=== PATIENT | female | born 1970 | race Caucasian/White ===

== ENCOUNTER 2020-04-21 10:02 | Emergency (ER) | payer OTHER, SELFPAY ==
--- NOTE | 2020-04-21 10:13 | XR_ITS ---
EXAMINATION: XR CHEST CLINICAL INFORMATION: Cough COMPARISON: November 30, 2016 TECHNIQUE: AP portable view of the chest was obtained. FINDINGS: No significant abnormality is noted involving the heart, lungs, mediastinum, bony thorax or soft tissues. XR/XR chest 1V IMPRESSION: No acute disease.
--- NOTE | 2020-04-21 10:14 | ED_ITS ---
HPI - General Adult General Chief complaint: Upper Respiratory Symptoms Stated complaint: covid symptoms Time Seen by Provider: 04/21/20 10:09 Source: patient Mode of arrival: ambulatory Limitations: no limitations History of Present Illness HPI narrative: patient is here complaining of dry cough, chest discomfort with coughing, low-grade fevers at home, earache bilateral, sore throat, headache for the last 3 days. Patient tells me she was sent to ED for COVID testing from her job. She tells me she has a history of COVID infection in September 2019 Onset (ago): day(s) Radiation: non-radiation Severity: mild Pain Consistency: constant Exacerbating factors: none Associated symptoms: denies other symptoms Treatments prior to arrival: other (alkasetlzer cough medication ) Related Data Previous Rx's Medication Instructions Recorded lisinopril 10 1 tab PO DAILY #30 tab 03/21/20 mg-hydrochlorothiazide 12.5 mg tablet Allergies Allergy/AdvReac Type Severity Reaction Status Date / Time cat dander [CATS] Allergy Unknown ITCHING Unverified 02/28/20 19:16 dog dander [DOG] Allergy Unknown ITCHING Unverified 02/28/20 19:16 phentermine Allergy Unknown Unknown Verified 04/21/20 10:23 Apples Allergy Unknown swelling Uncoded 01/21/20 00:00 lips and mouth general anesthesia Allergy Unknown Unknown Uncoded 04/21/20 10:23 General anesthesia- during Allergy Unknown unknown Uncoded 01/21/20 00:00 c-s HAYFEVER Allergy Unknown ITCHY EYES Uncoded 02/28/20 19:16 PLASTIC Allergy Unknown ITCHING Uncoded 02/28/20 19:16 plastic utensils and chap Allergy Unknown swell lips Uncoded 01/21/20 00:00 stic Review of Systems Review of Systems: Yes all other systems are reviewed and are negative Constitutional: Constitutional: Reports no additional constitutional complaints, Denies body ache(s), Denies chills, Reports fever(s) (low grade temp), Reports headache(s) and Denies weakness Eyes: Eyes: Reports no additional eye complaints and Denies change in vision ENT: Reports system reviewed and no additional complaints, except as documented, Denies dizziness, Reports otalgia, Reports headache(s), Denies nasal congestion, Reports nasal discharge, Denies neck pain and Reports sore throat Cardiovascular: Cardiovascular: Reports no additional cardiovascular complaints, Reports chest pain (with coughig ), Denies leg edema and Denies dysp arabella Respiratory: Respiratory: Reports no additional respiratory complaints, Reports cough and Denies dyspnea Gastrointestinal: Gastrointestinal: Reports no additional gastrointestinal complaints, Denies abdominal pain, Denies diarrhea, Denies nausea and Denies vomiting Genitourinary: Genitourinary: Reports no additional female genitourinary complaints and Denies urinary incontinence Musculoskeletal: Musculoskeletal: Reports no additional musculoskeletal complaints, Denies back pain, Denies arthralgias, Denies joint swelling, Denies neck pain, Denies numbness and Denies tingling Integumentary/Breasts: Skin/Breast: Reports system reviewed and no additional complaints, except as docu and Denies rash Neurologic: Reports system reviewed and no additional complaints, except as documented, Denies Abnormal speech present, Denies dizziness, Reports headache(s), Denies numbness, Denies tingling and Denies weakness PMFSH Past Medical History Attestation statement: The following information was validated with the patient. Source: obtained from family and nursing notes reviewed Social History Social History Advance Directives: No Advance Directives Information Provided: Yes Physical Exam Vital Signs: Vital Signs: Last Vital Signs Temp 97.9 F 04/21/20 10:19 Pulse 78 04/21/20 10:19 Resp 18 04/21/20 10:19 BP 174/103 H 04/21/20 10:19 Pulse Ox 98 04/21/20 10:19 Body Mass Index 0.3 Const: General: cooperative, healthy appearing, comfortable and no acute distress Orientation/consciousness: patient oriented x3 Limitations: no limitations HENMT: Head: Yes normal to inspection Ears: hearing grossly normal bilaterally General nose exam: Normal external nose present Face and sin us: Yes normal facial exam Mouth: Normal oral and palatal mucosa present Throat: Yes posterior oropharynx normal Eyes: General: appearance normal, both eyes and all related structures Pupils: Equal, round and reactive pupils present Neck: Neck: Yes normal visual inspection Chest: Chest palpation & inspection: normal inspection of the chest Resp: Effort & Inspection: normal respiratory effort Auscultation: clear to auscultation bilaterally Cardio: Rate: regular rate Rhythm: regular rhythm Peripheral pulses: Peripheral pulses 2+ throughout GI: Inspection: Yes normal to inspection Palpation (GI): Soft to palpation and nontender Auscultation: normal bowel sounds Back/Spine/Pelvis: Thoracic/Lumbar Spine: thoracic and lumbar spine normal to inspection Skin: General skin exam: no rashes or lesions noted Neuro: General: patient oriented x3, no focal motor deficits and normal sensation to monofilament Cranial nerves: Yes Equal, round and reactive pupils present Cognition (Neuro): normal cognition Speech: No Abnormal speech present Gait exam (Neuro): Normal gait present Motor exam (neuro): 5/5 motor strength present throughout Extrem: General: Yes normal to inspection Course Course Course Narrative: Will check CXR, COVID test. asymptomatic hypertension 1150- x-ray negative. COVID testing pending. Stable vital signs. Benign exam. Reviewed worrisome signs and symptoms of when to return to the emergency department. Comfortable discharge home. Medical Decision Making Medical Records Medical records reviewed: Yes I reviewed the patient's medical records. Lab Data Lab results reviewed: Yes I reviewed the patient's lab results. Imaging Data Chest x-ray: Radiologist's impression: EXAMINATION: XR CHEST CLINICAL INFORMATION: Cough COMPARISON: November 30, 2016 TECHNIQUE: AP portable view of the chest was obtained. FINDINGS: No significant abnormality is noted involving the heart, lungs, mediastinum, bony thorax or soft tissues. XR/XR chest 1V IMPRESSION: No acute disease. Discharge Plan Discharge Clinical Impression: Viral infection Patient Disposition: Home, Self-Care Instructions: Viral Syndrome (ED) Additional Instructions: We have tested you today for COVID 19. Test results take 1-2 days and we will call you with the results negative or positive. Take tylenol or motrin if able as needed for pain or fever. Stay well hydrated with fluids like water, gatorade and/or powerade. Wash hands at home. If living with others try to self isolate if possible. If unable wear a mask around others in your home and wash hands frequently. If COVID test is positive you will need to self isolate for a total of 14 days from when your symptoms started. You may return to work sooner if testing is negative and all symptoms resolved >72 hours. You should return to the emergency department for severe shortness of breath, chest pain or fever which does not respond to both tylenol and motrin at home. Prescriptions: No Action lisinopril-hydrochlorothiazide 10-12.5 mg tablet 1 tab PO DAILY Qty: 30 RF: 4 Referrals: Ioana Chung MD [Primary Care Provider] - 2 days Stand Alone Forms: Work/School Release Interventions: ED Discharge Assessment Last Done: 04/21/20 12:08 Discharge Date/Time: 04/21/20 12:08
[2020-04-21 10:19] VITALS: BP 174/103; PULSE 78; RESP 18; TEMP 36.6; O2SAT 98
== END 2020-04-21 12:08 | disposition home or self-care (01) ==
PROVIDERS: Nurse Practitioner Family; Emergency Provider Emergency Medicine; PCP Internal Medicine
DX: B34.9 Viral infection, unspecified (principal); R05 Cough; R07.9 Chest pain, unspecified; R51.9 Headache, unspecified; Z20.828 Contact with and (suspected) exposure to other viral communicable diseases; Z79.899 Other long term (current) drug therapy
CPT/HCPCS: 71045; 99283; U0003

== ENCOUNTER 2020-05-24 10:58 | Outpatient (REF) | payer OTHER, SELFPAY ==
--- NOTE | 2020-05-24 | MM_ITS ---
EXAMINATION: MM SCREENING DIGITAL BREAST TOMOSYNTHESIS, BILATERAL CLINICAL INFORMATION: Screening. Asymptomatic. The lifetime risk of breast cancer based on the Tyrer-Cuzick Model is 10%. COMPARISON: Mammography: 09/16/2018; outside mammography 09/25/2014 ([facility]) TECHNIQUE: Digital breast tomosynthesis is performed in both the craniocaudal and mediolateral oblique views along with computer-aided detection (CAD). Synthesized 2D images are generated from the tomosynthesis. FINDINGS: There are scattered areas of fibroglandular density (ACR BI-RADS breast composition Category b). There are no significant masses, abnormal calcifications, or other abnormalities. Recommend pattern is similar to prior studies. MM/MM tomosynthesis screening BI IMPRESSION: No mammographic evidence of malignancy. ASSESSMENT: BI-RADS 1: Negative RECOMMENDATION: Routine annual mammography screening. This patient's information was entered into a reminder system with a target due date for their next mammogram.
== END 2020-05-24 10:59 | disposition home or self-care (01) ==
LOC: HO.MAMMO 10:58
PROVIDERS: PCP Internal Medicine; Visit Provider Internal Medicine
DX: Z12.31 Encounter for screening mammogram for malignant neoplasm of breast (principal)
CPT/HCPCS: 77063; 77067

== ENCOUNTER 2020-07-09 11:04 | Day surgery (SDC) | payer OTHER, SELFPAY ==
--- NOTE | 2020-07-08 09:36 | HO.ANESPROP2 ---
Documented by User: Ai Ybarra 07/08/20 13:09 HPI - Anesthesia Eval Consult details Narrative: 49yo F for Upper Endoscopy and Colonoscopy Left message for patient to call to discuss ? allergy to GA. In previous record, allergy listed as General anesthesia- during 1991: unknown - Allergy . Has since had rotator cuff repair. Per patient - They said I almost during my . Unclear if r/t anesthesia. Things were really crazy back then . Had no issue with rotator cuff surgery. [facility] Past Medical History Medical History Diabetes Glaucoma HTN (hypertension) Hypothyroid Social History Social History Smoking Status: Never smoker Use of substances other than those prescribed or required for medical reasons: No Advance Directives: No Advance Directives Information Provided: No Meds Allergies Allergy/AdvReac Type Severity Reaction Status Date / Time cat dander [CATS] Allergy Unknown ITCHING Verified 07/09/20 11:44 dog dander [DOG] Allergy Unknown ITCHING Unverified 02/28/20 19:16 Apples Allergy Unknown swelling Uncoded 01/21/20 00:00 lips and mouth General anesthesia- during Allergy Unknown unknown Uncoded 01/21/20 00:00 c-s HAYFEVER Allergy Unknown ITCHY EYES Uncoded 02/28/20 19:16 plastic utensils and chap Allergy Unknown swell lips Uncoded 01/21/20 00:00 stic Exam Exam Date and Time: July 08, [id number] Pertinent Lab Results Pertinent Lab Results: Laboratory Tests 01/15/20 03/04/20 08:43 12:31 WBC 6.0 Hgb 14.1 Hct 40.5 Plt Count 238 Sodium 141 Potassium 4.4 Chloride 102 BUN 10 Creatinine 0.95 Assessment and Plan Assessment Anesthesia Assessment: Chart Reviewed Documented by User: Lisa Whiteside 07/09/20 12:12 [facility] Past Medical History Medical History Diabetes Glaucoma HTN (hypertension) Hypothyroid Social History Social History Smoking Status: Never smoker Use of substances other than those prescribed or required for medical reasons: No Advance Directives: No Advance Directives Information Provided: No Meds Allergies Allergy/AdvReac Type Severity Reaction Status Date / Time cat dander [CATS] Allergy Unknown ITCHING Verified 07/09/20 11:44 dog dander [DOG] Allergy Unknown ITCHING Unverified 02/28/20 19:16 Apples Allergy Unknown swelling Uncoded 01/21/20 00:00 lips and mouth General anesthesia- during Allergy Unknown unknown Uncoded 01/21/20 00:00 c-s HAYFEVER Allergy Unknown ITCHY EYES Uncoded 02/28/20 19:16 plastic utensils and chap Allergy Unknown swell lips Uncoded 01/21/20 00:00 stic Exam Airway Mallampati Class: II (Small mouth) TM Dist: >3cm Neck ROM: Full Heart: RRR Lungs: CTA Assessment and Plan Assessment Anesthesia Assessment: Anesthesia Plan Discussed and Chart Reviewed Final Anesthetic Review NPO: Yes ASA Class: II Final Preanesthetic Review: Meds/Allgs Chart Reviewed, Consent Obtained/Reviewed and Anes Risks/Benef Reviewed Patient Risk: Low Procedure Risk: Intermediate Anesthetic Plan Anesthetic Plan: MAC: Disposition: Standard PACU
[2020-07-09 11:45] VITALS: BMI 32.3
--- NOTE | 2020-07-09 11:55 | MHC.SHP ---
Pre-Procedural Eval Section B Chief Complaint: Dysphagia, Screening Relevant Family History (Specify if Yes): No Relevant Social History: None Present Medications: see Short Stay Collaborative assessment Medical History: Significant History (Diabetes Glaucoma HTN (hypertension) Hypothyroid) History of Previous Operations: Relevant previous surgery/procedure and date(s) () Allergies: Allergies Allergy/AdvReac Type Severity Reaction Status Date / Time cat dander [CATS] Allergy Unknown ITCHING Verified 07/09/20 11:44 dog dander [DOG] Allergy Unknown ITCHING Unverified 02/28/20 19:16 Apples Allergy Unknown swelling Uncoded 01/21/20 00:00 lips and mouth General anesthesia- during Allergy Unknown unknown Uncoded 01/21/20 00:00 c-s HAYFEVER Allergy Unknown ITCHY EYES Uncoded 02/28/20 19:16 plastic utensils and chap Allergy Unknown swell lips Uncoded 01/21/20 00:00 stic Review of Systems Sugical H&P ROS: Negative: Constitution, Cardiovascular, Respiratory, Neurological, Psychiatric, Hem-Onc, Allergic/Immunologic, Gastrointestinal, Genitourinary, Musculoskeletal, Integumentary, Endocrine and Eyes/Ears/Nose/Throat Exam Surgical H&P Exam: Normal: HEENT, Normal: Heart, Normal: Lungs, Normal: Extremities, Normal: Abdomen, Normal: Skin and Normal: Neurological Plan Diagnosis/Plan: Unchanged I have reviewed the history and physical and performed a pertinent physical examination on my patient. No changes have occurred unless specified.
[2020-07-09 11:59] VITALS: BP 131/85; PULSE 88; RESP 18; TEMP 36.7; O2SAT 97
[2020-07-09 12:05] LABS: Glucose, Whole Blood 168 mg/dL (60-115)
[2020-07-09] MEDS: Lactated Ringers 1,000 ML 100 ML IVCONT (12:14)
--- NOTE | 2020-07-09 13:09 | PM.OP ---
Brief Operative Note Date of Service: 07/09/20 Pre-op diagnosis: dysphagia, screening colonoscopy Post-op diagnosis: same Procedure: see op note Surgeon: Erika Zamudio MD Anesthesia: MAC Estimated blood loss (mL): 5 Condition: stable Disposition: PACU
--- NOTE | 2020-07-09 13:10 | P.OP_ITS ---
Operative Note Operative Note Date of Service: 07/09/20 Narrative: Operative Information Procedure Description: EGD, Colonoscopy FLEXIBLE TRANSORAL UPPER GASTROINTESTINAL ENDOSCOPY AND COLONOSCOPY PROCEDURE NOTE UPPER ENDOSCOPY Consent: Indications for the procedure and potential complications of bleeding, perforation, reaction to medications and missed diagnosis were discussed with the patient and informed consent was obtained. Instrument: Olympus GIF H 190 J mid size upper endoscope Monitoring: Vital signs and clinical assessment, continuous EKG monitoring, Pulse oximetry, Carbon Dioxide monitoring and blood pressure monitoring were done throughout the procedure. Procedure: The patient was placed in the left lateral decubitis position and pre-procedure medications were administered and a bite block was placed. The endoscope was inserted into the mouth and advanced under direct vision to the third part of duodenum. A careful inspection was made as the upper endoscope was withdrawn including a retroflexed examination of the proximal stomach; Findings and interventions are described below. Findings: Larynx:normal Esophagus: GE junction at 35 cm, diaphragm hiatus at 35 cm, mild esophagitis at GEJ, bx taken from distal and proximal esophagus in separate jars. 20 mm balloon dilated with tear noted at 6 o' clock position. furrowing of esophagus observed Stomach: Patchy erythema with scarring. Biopsies were obtained. Grade 2 flap valve on retroflexed examination of the cardia. Reduced gastric movement noted. Duodenum: Normal bulb and descending duodenum, bx taken Intervention: Biopsies as noted above, balloon dilation COLONOSCOPY Instrument: Olympus variable stiffness pediatric scope 190L Colonoscopy Monitoring: Vital signs and clinical assessment, continuous EKG monitoring, Pulse oximetry, Carbon Dioxide monitoring and blood pressure monitoring were done throughout the procedure. Colon withdrawal time was 9 minutes. Procedure: The patient was placed in the left lateral decubitis position and pre-procedure medications were administered. After a digital rectal examination of the ano-rectum, the video colonoscope was inserted into the rectum and advanced through the colon to the cecum/TI. The colonoscope was slowly withdrawn in a retrograde panoramic fashion and the colon mucosa was carefully examined including a retroflexed view of the rectum. Findings and interventions are described below. Procedure Difficulty:easy Findings: bx taken due to variable bowel habit from TI and random colon Terminal Ileum-normal, bx taken random colon bx taken Cecum:normal Ascending Colon: normal Transverse Colon -normal Descending Colon:normal Sigmoid Colon: normal Rectum: Retroflexion with moderate internal and external hemorrhoids noted Anorectum - external hemrorhoid seen Colon preparation: [place] Bowel Preparation Scale Right colon; 2 Transverse colon: 3 Left colon; 2 (0 = Unprepared colon segment with mucosa not seen due to solid stool that cannot be cleared. 1 = Portion of mucosa of the colon segment seen, but other areas of the colon segment not well seen due to staining, residual stool and/or opaque liquid. 2 = Minor amount of residual staining, small fragments of stool and/or opaque liquid, but mucosa of colon segment seen well. 3 = Entire mucosa of colon segment seen well with no residual staining, small fragments of stool or opaque liquid) Impression and Post Procedure Diagnosis: Endoscopy Findings: esophagitis esophageal stricture gastritis Colonoscopy Findings: internal and external hemerrhoids Plan: Await Pathology results Repeat Colonoscopy in 10 years or earlier if clinically indicated High fiber diet leaflet avoid straining at stool, epsom salts and sitz bath, anusol supps or cream prn avoid nsaid for 3-5 days incl aspirin soft diet today and advance tomorrow may need PPi trial if not taking Above findings were reviewed with the patient and relevant handouts were provided if indicated.
[2020-07-09 13:15] VITALS: BP 111/69; PULSE 73; RESP 18; TEMP 36.2; O2SAT 99
[2020-07-09 13:31] VITALS: BP 109/75; PULSE 79; RESP 18; TEMP 36.2; O2SAT 98
== END 2020-07-09 14:01 | disposition home or self-care (01) ==
PROVIDERS: PCP Internal Medicine; Visit Provider Internal Medicine Gastroenterology
PROC: (CPT 45380; principal; 2020-07-09 12:20)
DX: Z12.11 Encounter for screening for malignant neoplasm of colon (principal); K64.8 Other hemorrhoids; K64.4 Residual hemorrhoidal skin tags; K20.90 Esophagitis, unspecified without bleeding; K22.2 Esophageal obstruction; K29.50 Unspecified chronic gastritis without bleeding; K44.9 Diaphragmatic hernia without obstruction or gangrene; I10 Essential (primary) hypertension; E11.9 Type 2 diabetes mellitus without complications; Z79.84 Long term (current) use of oral hypoglycemic drugs; Z79.899 Other long term (current) drug therapy; R79.89 Other specified abnormal findings of blood chemistry; Z88.4 Allergy status to anesthetic agent
CPT/HCPCS: 45380; 43249; 43239; 82947; 88305; 88342; C1726

== ENCOUNTER → 2020-07-23 10:39 | Outpatient (BNVA) | payer OTHER, SELFPAY | PROVIDERS: PCP Internal Medicine; Visit Provider Nurse Practitioner ==

== ENCOUNTER 2020-07-29 15:49 | Outpatient (REF) | payer OTHER, SELFPAY | END 2020-07-29 15:50 | disposition home or self-care (01) | LOC: HO.LAB 15:49 | PROVIDERS: PCP Internal Medicine; Visit Provider Internal Medicine | DX: Z20.822 Contact with and (suspected) exposure to COVID-19 (principal) | CPT/HCPCS: 36415; C9803; U0003; U0005 ==

== ENCOUNTER → 2020-08-19 08:50 | Outpatient (BNVA) | payer OTHER, SELFPAY | PROVIDERS: PCP Internal Medicine; Visit Provider Nurse Practitioner ==

== ENCOUNTER 2020-08-27 10:31 | Outpatient (REF) | payer OTHER, SELFPAY ==
[2020-08-27 11:19] LABS: Estimated Average Glucose 189 mg/dL; Hemoglobin A1c % 8.2 %
[2020-08-27 11:43] LABS: Alanine Aminotransferase 50 U/L (0-31); Anion Gap 12 (12-20); Aspartate Amino Transferase 40 U/L (5-31); Blood Urea Nitrogen 12 mg/dL (9-16); Calcium 9.2 mg/dL (8.4-10.2); Carbon Dioxide 30 mmol/L (22-29); Chloride 104 mmol/L (96-108); Cholesterol 125 mg/dL; Estimated Glomerular Filt Rate > 60; Glucose Fasting 120 mg/dL (60-99); HDL Cholesterol 36 mg/dL; LDL Cholesterol Calculated 74 mg/dl; Potassium 3.5 mmol/L (3.3-5.1); Sodium 142 mmol/L (135-145); Triglycerides 79 mg/dL
[2020-08-27 12:05] LABS: Free T4 (Free Thyroxine) 0.77 ng/dL (0.71-1.85); Thyroid Stimulating Hormone 6.32 uIU/mL (0.32-4.0); Vitamin D 25-OH Total 19.2 ng/mL (>30)
[2020-08-27 12:24] LABS: Vitamin B12 283 pg/mL (200-900)
== END 2020-08-27 10:32 | disposition home or self-care (01) ==
LOC: HO.HMGCLDS 10:31
PROVIDERS: Hospitalist; PCP Internal Medicine; Visit Provider Internal Medicine
DX: E11.65 Type 2 diabetes mellitus with hyperglycemia (principal); I10 Essential (primary) hypertension; E66.9 Obesity, unspecified; E03.9 Hypothyroidism, unspecified; R53.83 Other fatigue; L65.9 Nonscarring hair loss, unspecified; E55.9 Vitamin D deficiency, unspecified; Z20.822 Contact with and (suspected) exposure to COVID-19
CPT/HCPCS: 36415; 80048; 80061; 82306; 82607; 82746; 83036; 84439; 84443; 84450; 84460; 86769; U0003; U0005

== ENCOUNTER 2020-09-02 10:53 | Outpatient (REF) | payer OTHER, SELFPAY ==
--- NOTE | ~2020-09-02 | US_ITS ---
EXAMINATION: US ABDOMEN COMPLETE CLINICAL INFORMATION: Right upper quadrant pain. COMPARISON: Ultrasound abdomen complete 02/21/2020 and 11/12/2016. TECHNIQUE: Real-time imaging of the abdominal viscera. FINDINGS: PANCREAS: Normal. ABDOMINAL AORTA: The proximal, mid, and distal segments are normal in caliber. INFERIOR VENA CAVA: Visualized portions are normal. LIVER: The liver is normal in size. The liver contour is normal. Liver echotexture is increased probably representing fatty infiltration. There is a hypoechoic area adjacent to the gallbladder, characteristic location of focal fatty sparing. No other focal hepatic lesion. There is no intrahepatic biliary duct dilatation seen. GALLBLADDER: Normal. The gallbladder is physiologically distended without evidence of stones, sludge, polyps, wall thickening or pericholecystic fluid. COMMON BILE DUCT: Normal in caliber measuring 0.2 cm in diameter. RIGHT KIDNEY: Normal. No hydronephrosis. No renal calculi or focal parenchymal lesions. The kidney measures 9.4 cm in maximum dimension. LEFT KIDNEY: Normal. No hydronephrosis. No renal calculi or focal parenchymal lesions. The kidney measures 11.1 cm in maximum dimension. SPLEEN: Normal. The spleen measures 10.2 cm in maximum dimension. FREE FLUID: None. US/US abdomen complete IMPRESSION: Echogenic liver probably representing fatty infiltration. Otherwise unremarkable exam.
== END 2020-09-02 10:54 | disposition home or self-care (01) ==
LOC: HO.HMGCX 10:53
PROVIDERS: PCP Internal Medicine; Visit Provider Internal Medicine
DX: R10.11 Right upper quadrant pain (principal)
CPT/HCPCS: 76700

== ENCOUNTER 2020-11-12 16:32 | Outpatient (REF) | payer OTHER, SELFPAY ==
--- NOTE | ~2020-11-12 | XR_ITS ---
EXAMINATION: XR ELBOW, LEFT CLINICAL INFORMATION: Left elbow pain. COMPARISON: Left elbow radiographs dated 10/05/2018. TECHNIQUE: AP, lateral, and oblique views of the left elbow. FINDINGS: No acute fracture or dislocation. No joint space narrowing or marginal osteophytes. No osseous erosion. No significant joint effusion. Thin calcification redemonstrated adjacent to the olecranon, likely indicating tendinopathy and unchanged. Previously seen soft tissue swelling has resolved. XR/XR elbow LT min 3V IMPRESSION: No acute osseous abnormality. Calcification redemonstrated in the region of the olecranon, likely indicating distal triceps tendinopathy. Posterior soft tissue swelling has resolved.
== END 2020-11-12 16:33 | disposition home or self-care (01) ==
LOC: HO.XRAY 16:32
PROVIDERS: PCP Internal Medicine; Visit Provider Nurse Practitioner Family
DX: M25.522 Pain in left elbow (principal)
CPT/HCPCS: 73080

== ENCOUNTER 2021-04-18 10:16 | Outpatient (REF) | payer OTHER, SELFPAY ==
[2021-04-18 11:01] LABS: MANUAL DIFF FLAG NO
[2021-04-18 11:04] LABS: Basophils Percent Auto 0.5 % (0-2); Eosinophils Absolute Auto 0.5 X10*3/uL (0.0-0.4); Eosinophils Percent Auto 6.9 % (0-4); Hematocrit 41.8 % (37.0-47.0); Hemoglobin 14.4 g/dl (12.0-16.0); Imm Gran Abs Auto 0.02 X10*3/uL (0.00-0.03); Imm Gran Pct Auto 0.3 % (0.0-0.4); Lymphocytes Absolute Auto 1.9 X10*3/uL (1.2-4.9); Lymphocytes Percent Auto 29.7 % (20-40); Mean Corpuscular HGB Conc 34.4 g/dl (31.0-35.0); Mean Corpuscular Hemoglobin 31.6 pg (27.0-33.0); Mean Corpuscular Volume 91.9 fL (80.0-98.0); Mean Platelet Volume 10.3 fL (9.4-12.3); Monocytes Absolute Auto 0.3 X10*3/uL (0.1-1.2); Monocytes Percent Auto 4.8 % (2-11); Neutrophils Absolute Auto 3.8 x10*3/uL (2.0-8.3); Neutrophils Percent Auto 57.8 % (45-73); Platelet Count 226 X10*3/uL (160-400); Red Blood Count 4.55 X10*6/uL (4.20-5.50); Red Cell Distribution Width 12.1 % (11.0-16.0); White Blood Count 6.5 X10*3/uL (4.8-10.8)
[2021-04-18 11:32] LABS: Creatinine Urine 199.79 mg/dL; Microalbum/Creatinine Ratio Ur 8.5 ug/mg cr
[2021-04-18 11:33] LABS: Alanine Aminotransferase 188 U/L (0-31); Albumin Level 4.3 g/dL (3.5-5.0); Alkaline Phosphatase 87 U/L (39-117); Anion Gap 11 (12-20); Aspartate Amino Transferase 144 U/L (5-31); Bilirubin Total 0.5 mg/dL (0.0-1.0); Blood Urea Nitrogen 8 mg/dL (9-16); Calcium 9.3 mg/dL (8.4-10.2); Carbon Dioxide 28 mmol/L (22-29); Chloride 107 mmol/L (96-108); Cholesterol 140 mg/dL; Estimated Glomerular Filt Rate > 60; Glucose Fasting 152 mg/dL (60-99); HDL Cholesterol 39 mg/dL; LDL Cholesterol Calculated 84 mg/dl; Potassium 3.9 mmol/L (3.3-5.1); Sodium 142 mmol/L (135-145); Total Protein 6.9 g/dL (6.5-8.0); Triglycerides 85 mg/dL
[2021-04-18 11:53] LABS: Free T4 (Free Thyroxine) 0.73 ng/dL (0.71-1.85); Thyroid Stimulating Hormone 7.99 uIU/mL (0.32-4.0); Vitamin D 25-OH Total 43.2 ng/mL (>30)
[2021-04-20 09:56] LABS: Folate 16.2 ng/mL (> or = 4.0); Vitamin B12 > 2000 pg/mL (200-900)
[2021-04-20 16:57] LABS: Thyroid Peroxidase Antibodies 49 IU/mL (<9)
== END 2021-04-18 10:17 | disposition home or self-care (01) ==
LOC: HO.HMGCLDS 10:16
PROVIDERS: PCP Internal Medicine; Visit Provider Internal Medicine
DX: E03.9 Hypothyroidism, unspecified (principal); L65.9 Nonscarring hair loss, unspecified; E11.65 Type 2 diabetes mellitus with hyperglycemia; E55.9 Vitamin D deficiency, unspecified; E66.9 Obesity, unspecified
CPT/HCPCS: 36415; 80053; 80061; 82043; 82306; 82607; 82746; 84439; 84443; 85025; 86376

== ENCOUNTER 2021-07-16 08:57 | Outpatient (REF) | payer OTHER, SELFPAY ==
[2021-07-16 11:43] LABS: Estimated Average Glucose 189 mg/dL; Hemoglobin A1c % 8.2 %
[2021-07-16 11:51] LABS: Microalbum/Creatinine Ratio Ur 8.4 ug/mg cr
[2021-07-16 11:58] LABS: Alanine Aminotransferase 113 U/L (0-31); Albumin Level 4.4 g/dL (3.5-5.0); Alkaline Phosphatase 79 U/L (39-117); Anion Gap 13 (12-20); Aspartate Amino Transferase 78 U/L (5-31); Bilirubin Direct 0.2 mg/dL (0.0-0.5); Bilirubin Total 0.6 mg/dL (0.0-1.0); Blood Urea Nitrogen 12 mg/dL (9-16); Calcium 10.6 mg/dL (8.4-10.2); Carbon Dioxide 29 mmol/L (22-29); Chloride 103 mmol/L (96-108); Cholesterol 157 mg/dL; Estimated Glomerular Filt Rate > 60; Glucose Fasting 193 mg/dL (60-99); HDL Cholesterol 40 mg/dL; LDL Cholesterol Calculated 82 mg/dl; Potassium 4.2 mmol/L (3.3-5.1); Sodium 141 mmol/L (135-145); Total Protein 7.3 g/dL (6.5-8.0); Triglycerides 175 mg/dL
[2021-07-16 12:04] LABS: Hepatitis B Surface Antigen Negative (Negative); ~HepC Num1 0.14 S/CO (0.00-0.79); ~Hepatitis C Antibody Nonreactive (Nonreactive)
[2021-07-16 12:14] LABS: HBS Num1 0.43 mIU/mL (0-7.99); HBc Num1 0.06 S/CO (0.00-0.79); Hepatitis B Core Antibody Nonreactive (Nonreactive); ~Hepatitis B Surface Antibody NONREACTIVE (Nonreactive)
[2021-07-16 12:18] LABS: Free T4 (Free Thyroxine) 0.73 ng/dL (0.71-1.85); Thyroid Stimulating Hormone 6.35 uIU/mL (0.32-4.0); Vitamin D 25-OH Total 44.5 ng/mL (>30)
[2021-07-16 12:44] LABS: Folate 16.4 ng/mL (> or = 4.0); Vitamin B12 792 pg/mL (200-900)
[2021-07-17 09:01] LABS: Thyroid Peroxidase Antibodies 42 IU/mL (<9)
== END 2021-07-16 08:58 | disposition home or self-care (01) ==
LOC: HO.HMGCLDS 08:57
PROVIDERS: PCP Internal Medicine; Visit Provider Internal Medicine
DX: R74.8 Abnormal levels of other serum enzymes (principal); R79.89 Other specified abnormal findings of blood chemistry; E03.9 Hypothyroidism, unspecified; E11.65 Type 2 diabetes mellitus with hyperglycemia; E55.9 Vitamin D deficiency, unspecified; E66.9 Obesity, unspecified; I10 Essential (primary) hypertension; K75.81 Nonalcoholic steatohepatitis (NASH)
CPT/HCPCS: 36415; 80048; 80061; 80076; 82043; 82306; 82607; 82746; 83036; 84439; 84443; 86376; 86704; 86706; 86803; 87340

== ENCOUNTER 2021-07-22 14:06 | Outpatient (REF) | payer OTHER, SELFPAY ==
--- NOTE | ~2021-07-22 | US_ITS ---
EXAMINATION: REGION OF LEFT ACHILLES TENDON, ULTRASOUND CLINICAL INFORMATION: Lump on Achilles tendon left leg. Achilles tendinitis. COMPARISON: Scanning of the right distal Achilles tendon area. TECHNIQUE: Targeted ultrasound evaluation of the left posterior foot FINDINGS: No region of patient's tenderness and lump there is a heterogeneous bulging of the Achilles tendon with some mild hyperemia. This may represent a region of tendinitis. No Achilles tendon rupture is identified. No abnormal fluid collection is identified. US/US extremity nonvascular IMPRESSION: Region of patient's pain and lump corresponds to a focal heterogeneous bulging of the Achilles tendon which may be related to acute tendinitis.
== END 2021-07-22 14:07 | disposition home or self-care (01) ==
LOC: HO.HMGCX 14:06
PROVIDERS: Visit Provider Physician Assistant
DX: M76.60 Achilles tendinitis, unspecified leg (principal)
CPT/HCPCS: 76882

== ENCOUNTER 2021-07-29 07:48 | Outpatient (REF) | payer OTHER, SELFPAY ==
--- NOTE | ~2021-07-29 | XR_ITS ---
EXAMINATION: XR WRIST, LEFT CLINICAL INFORMATION: Pain COMPARISON: None TECHNIQUE: PA, lateral, and oblique views of the left wrist. FINDINGS: The bones and soft tissues are normal. No fracture. Alignment is anatomic with normal joint spaces. No erosions or abnormal soft tissue calcifications. XR/XR wrist LT min 3V IMPRESSION: Unremarkable left wrist exam
== END 2021-07-29 07:49 | disposition home or self-care (01) ==
LOC: HO.HOSX 07:48
PROVIDERS: Visit Provider Physician Assistant
DX: M25.532 Pain in left wrist (principal); M67.922 Unspecified disorder of synovium and tendon, left upper arm
CPT/HCPCS: 73110; 99202

== ENCOUNTER 2021-08-12 09:08 | Outpatient (REF) | payer OTHER, SELFPAY ==
--- NOTE | ~2021-08-12 | XR_ITS ---
EXAMINATION: XR ANKLE, LEFT CLINICAL INFORMATION: Left ankle pain COMPARISON: None TECHNIQUE: AP, lateral, and mortise views of the left ankle. FINDINGS: The bones and soft tissues are normal. No fracture. Alignment is anatomic. Joint spaces are maintained. No joint effusion. Calcaneal enthesophyte at the Achilles tendon insertion. XR/XR ankle LT min 3V IMPRESSION: Posterior calcaneal enthesophyte. Otherwise unremarkable.
== END 2021-08-12 09:09 | disposition home or self-care (01) ==
LOC: HO.HOSX 09:08
PROVIDERS: PCP Internal Medicine; Visit Provider Physician Assistant
DX: M25.572 Pain in left ankle and joints of left foot (principal); M76.62 Achilles tendinitis, left leg; E11.65 Type 2 diabetes mellitus with hyperglycemia; I10 Essential (primary) hypertension; E55.9 Vitamin D deficiency, unspecified; J30.81 Allergic rhinitis due to animal (cat) (dog) hair and dander; J30.1 Allergic rhinitis due to pollen; Z91.018 Allergy to other foods; T49.3X5A Adverse effect of emollients, demulcents and protectants, initial encounter; T49.8X5A Adverse effect of other topical agents, initial encounter
CPT/HCPCS: 73610; 99212

== ENCOUNTER 2021-08-31 07:30 | Outpatient (RCR) | payer OTHER, SELFPAY ==
--- NOTE | 2021-08-11 10:51 | MHC.OT.OEV ---
[address] [phone] F: [phone] Occupational Therapy Evaluation Diagnosis: TENDINOPATHY OF LEFT ELBOW Date of Onset: 07/14/21 Attending Provider: Ailyn Junior Prescribed Treatment: EVAL AND TREAT History of Current Condition: REPORTS ONSET OF L ELBOW PAIN ABOUT ONE MONTH AGO, THEN ONSET OF L WRIST PAIN AND NUMBNESS/TINGLING. STATES SHE HAD LEFT LATERAL ELBOW EDEMA, HAS SINCE IMPROVED. XRAYS UNREMARKABLE. SCHEDULED FOR EMG ON 09/24/21. 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 SOME ASSISTANCE WITH FILING PAPERS, REACHING O/H. DIFFICULTIES WITH LIFTING >5 POUNDS IN LEFT HAND. MODERATE DIFFICULTIES WITH CLEANING, COOKING. USING DOMINANT R HAND FOR MOST TASKS. Sleep: WEARING NEWLY ISSUED WRIST SPLINT AT NIGHT. HAS IMPROVED WITHIN THE LAST WEEK. AWAITING ELBOW SPLINT PRESCRIBED BY JASON. Driving: MILD DIFFICULTIES WITH HOLDING STEERING WHEEL. ALT USE OF L AND R. Pain Assessment Pain Score: 1-10/10 Pain Scale Used: Numeric (0 - 10) Pain Location and Description: 1/10 L ELBOW AT REST; 1/10 L WRIST (ULNAR SIDE) 10/10 WITH ACTIVITY; 5-6/10 L WRIST WITH ACTIVITY ACHY, THROBBING Aggravating Factors: LIFTING, CARRYING, GENERAL USE Alleviating Factors: LIDOCANE PATCHES, DICLOFENAC Skin and Soft Tissue Assessment Skin and Soft Tissue: Swelling Comments: L DORSAL FOREARM EDEMA, MILD ATROPHY OF THENAR EMINENCE Nerve assessment Ulnar Nerve: Left Impaired Median Nerve: Left Impaired Radial Nerve: Comments: (+) TINELS AT MEDIAL ELBOW, (+) TINELS AT VOLAR WRIST Sensory Assessment Temperature: Light Touch: WNL Proprioception: Vibration: Comments: REPORTS NUMBNESS/ TINGLING THROUGH D1-D5 OF L HAND SEMMES FERNANDO INTACT TO ALL DIGITS Edema Assessment Upper Extremity: Left Impaired Lower Extremity: Comments: L DORSAL EDEMA AT WRIST/ WRIST EXTENSORS NOTED CIRCUMFERENCE OF WRIST AT U.S. LEFT 15.8 CM, RIGHT 15.4 CM CIRCUMFERENCE 18 CM PROXIMAL TO U.S. LEFT 25.8 CM, RIGHT 26.1 CM Dexterity Assessment Dexterity: WFL Comments: FUNCTIONAL DEXTERITY TEST: L 25 SECONDS, R 21 SECONDS Special Tests Comments: (+) TINELS AT L MEDIAL ELBOW AND VOLAR WRIST (+) COZENS TEST L (-) PHALENES (-) MARIELLE AROM(PROM) Strength Elbow Flexion: L 140, R 150 Extension: L 5, R 0 Pronation: Supination: Comments: Flexion: Extension: Pronation: Supination: Comments: Wrist Flexion: L 65, R 70 Extension: L 65, R 70 Ulnar Deviation: L 35, R 40 Radial Deviation: L 5, R 15 Comments: Flexion: Extension: Ulnar Deviation: Radial Deviation: Comments: Digits Index MCP: PIP: DIP: Long MCP: PIP: DIP: Ring MCP: PIP: DIP: Small MCP: PIP: DIP: Comments: Gross Grasp: L 25, R 40 Lateral Pinch: L 5, R 11 Two-Point Pinch: L 5, R 9 Three-Jaw Raymond: L 4, R 10 Comments: 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 Patient demonstrates Patient verbalizes Barriers to Learning: None Readiness for Learning: Accepting Who was educated? Patient Comments: Plan of Care Assessment: MS POMPA IS A RIGHT HANDED FEMALE WITH UNCONTROLLED DM TYPE II, SHE REPORTS A ONE MONTH HISTORY OF LEFT ELBOW AND WRIST PAIN. ADDITIONALLY, SHE STATES SHE HAS NUMBNESS AND TINGLING IN HER LEFT HAND THROUGH ALL DIGITS. SHES STATES HER SYMPTOMS IN HER HAND HAVE IMPROVED SINCE WEARING A WRIST SPLINT AT NIGHT. ONGOING SKILLED OT IS WARRANTED TO ADDRESS THE AREAS MENTIONED ABOVE AND IMPROVE QOL. 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 >35 POUNDS REPORT MILD NUMBNESS/TINGLING SYMPTOMS IN L HAND AT NIGHT AND DURING THE DAY REPORT <5/10 PAIN WITH ADLs AND LIGHT IADLs Frequency and Duration: The patient will be seen 2X/WEEK FOR 4 WEEKS Treatment Plan: Therapeutic Exercise Therapeutic Activity Home Exercise Program Splinting Neuro Re-ed Patient Education Desensitization/Sensory Re-ed Edema Control ADL Training Ultrasound NMES Paraffin Fluidotherapy MHP Cold Packs Joint Mobilization Soft Tissue Mobilization Kinesiotaping Other (see comments) Electronically Signed By: LENNY BLACK/Shayna Reviewed/agree with student documentation: N/A Therapist: Please sign and return to therapist, Thank you for your referral.
--- NOTE | 2021-09-16 12:46 | MHC.OT.DC ---
[address] [phone] F: [phone] Occupational Therapy Discharge Note Provider: Ailyn Junior Diagnosis: TENDINOPATHY OF LEFT ELBOW Date of Evaluation: 08/11/21 Date of Discharge: 09/16/21 Treatments to Date: 5 Cancellations to Date: 4 No Shows to Date: 2 Discharge Status: Improved Function Independent with HEP Visit Non-compliance Discharge Summary: MS POMPA WAS MAKING IMPROVEMENT DURING THE COURSE OF HER OT VISITS. SHE REPORTED OVERALL IMPROVEMENTS IN NUMBNESS, TINGLING AND PAIN THORUGH HER LUE. A WRIST WIDGET WAS FABRICATED FOR DRUJ INSTABILITY AND WAS BEING WORN DURING THE DAY. AT NIGHT, SHE WAS WEARING A PREFAB WRIST SPLINT ON HER WRIST AND A FOLDED PILLOW AT HER ELBOW TO DECREASE NUMBNESS AND TINGLING. UNFORTUNATELY, Pt IS BEING DISCHARGED DUE TO VISIT NON COMPLIANCE WITH THE CORE POLICY. Electronically Signed By: LAMONT SANTORO OTR/Shayna Reviewed/agree with student documentation: N/A Therapist: Please Sign and return to therapist, thank you for your referral.
== END 2021-09-16 12:45 | disposition home or self-care (01) ==
LOC: HO.OT 07:30
PROVIDERS: PCP Internal Medicine; Visit Provider Physician Assistant
DX: M67.922 Unspecified disorder of synovium and tendon, left upper arm (principal)
CPT/HCPCS: 97035; 97110; 97112; 97140; 97166; 97760

== ENCOUNTER 2021-09-18 18:44 | Outpatient (REF) | payer OTHER, SELFPAY ==
--- NOTE | ~2021-09-18 | MR_ITS ---
EXAMINATION: MRI ANKLE WITHOUT CONTRAST, LEFT CLINICAL INFORMATION: Increased swelling, pain. COMPARISON: None TECHNIQUE: MRI of the ankle without contrast is performed in a 1.5 Kary high-field scanner. FINDINGS: ACHILLES TENDON: There is slight thickening of the mid to distal Achilles tendon involving a segment approximately 3.8 cm craniocaudal,, with mild heterogeneous signal. Findings suggest mild tendinosis. There is mild peritendinitis. No focal tear is seen. BONE/JOINTS: No evidence of fracture. Ankle mortise is maintained. No suspicious marrow signal changes. MUSCLES/TENDONS: Mild posterior tibial peritendinitis/tenosynovitis. Medial flexor, peroneal, extensor tendons intact. LIGAMENTS: Mild sprain ATFL. Posterior talofibular, tibiofibular, calcaneofibular ligaments intact. Sprain deltoid ligament. PLANTAR FASCIA: Intact. SINUS TARSI: Normal signal. TARSAL TUNNEL : No mass lesion SUBCUTANEOUS SOFT TISSUES: Mild lateral subcutaneous edema. MR/MR ankle LT wo con IMPRESSION: 1. Findings suggest mild tendinosis of the mid to distal Achilles tendon. No focal tear. Mild peritendinitis. 2. Mild posterior tibial peritendinitis/tenosynovitis. 3. Mild sprain ATFL. Sprain deltoid ligament.
== END 2021-09-18 18:45 | disposition home or self-care (01) ==
LOC: HO.MRI 18:44
PROVIDERS: Visit Provider Physician Assistant
DX: M76.60 Achilles tendinitis, unspecified leg (principal)
CPT/HCPCS: 73721

== ENCOUNTER → 2021-09-23 09:27 | Outpatient (BNVA) | payer OTHER, SELFPAY | PROVIDERS: Visit Provider Physician Assistant | DX: M76.60 Achilles tendinitis, unspecified leg (principal) ==

== ENCOUNTER 2021-09-24 08:57 | Outpatient (REF) | payer OTHER, SELFPAY ==
--- NOTE | 2021-09-24 09:01 | EMG_ITS ---
Left median and ulnar motor and sensory studies were performed. Left radial sensory and median and lateral antecubital sensory studies were performed. Paraspinal muscles were tested with a needle. IMPRESSION: Mild left median neuropathy across carpal tunnel. MD CLARK Chowdary/MILENA / [phone]
== END 2021-09-24 08:58 | disposition home or self-care (01) ==
LOC: HO.NEURO 08:57
PROVIDERS: Visit Provider Physician Assistant
DX: R20.0 Anesthesia of skin (principal); R20.2 Paresthesia of skin
CPT/HCPCS: 95886; 95910

== ENCOUNTER → 2021-10-21 08:47 | Outpatient (BNVA) | payer OTHER, SELFPAY | PROVIDERS: Visit Provider Orthopaedic Surgery | DX: G56.02 Carpal tunnel syndrome, left upper limb (principal) ==

== ENCOUNTER 2022-01-11 17:09 | Outpatient (REF) | payer OTHER, SELFPAY ==
--- NOTE | ~2022-01-11 | XR_ITS ---
EXAMINATION: XR CHEST CLINICAL INFORMATION: Pain in left upper arm. COMPARISON: Chest x-ray 04/21/2020 TECHNIQUE: 2 views of the chest were obtained. FINDINGS: No significant abnormality is noted involving the heart, lungs, mediastinum, bony thorax or soft tissues. XR/XR chest 2V IMPRESSION: Unremarkable examination.
== END 2022-01-11 17:10 | disposition home or self-care (01) ==
LOC: HO.HMGCX 17:09
PROVIDERS: PCP Internal Medicine; Visit Provider Physician Assistant
DX: M79.622 Pain in left upper arm (principal)
CPT/HCPCS: 71046

== ENCOUNTER 2022-09-17 11:11 | Outpatient (REF) | payer OTHER, SELFPAY ==
[2022-09-17 14:23] LABS: Estimated Average Glucose 229 mg/dL; Hemoglobin A1c % 9.6 %
[2022-09-17 14:24] LABS: Alanine Aminotransferase 55 U/L (0-31); Albumin Level 4.5 g/dL (3.5-5.0); Alkaline Phosphatase 83 U/L (39-117); Anion Gap 15 (12-20); Aspartate Amino Transferase 35 U/L (5-31); Bilirubin Total 0.8 mg/dL (0.0-1.0); Blood Urea Nitrogen 13 mg/dL (9-16); Carbon Dioxide 27 mmol/L (22-29); Chloride 103 mmol/L (96-108); Cholesterol 132 mg/dL; Estimated Glomerular Filt Rate > 60; Glucose Fasting 240 mg/dL (60-99); HDL Cholesterol 37 mg/dL; LDL Cholesterol Calculated 73 mg/dl; Sodium 141 mmol/L (135-145); Total Protein 7.1 g/dL (6.5-8.0); Triglycerides 111 mg/dL
[2022-09-17 14:41] LABS: Free T4 (Free Thyroxine) 0.99 ng/dL (0.71-1.85); Thyroid Stimulating Hormone 3.68 uIU/mL (0.32-4.0)
[2022-09-20 13:43] LABS: Thyroid Peroxidase Antibodies 36 IU/mL (<9)
[2022-09-20 21:49] LABS: Calcium (PTHI) 10.4 mg/dL (8.6-10.4); PTHI 39 pg/mL (16-77)
== END 2022-09-17 11:12 | disposition home or self-care (01) ==
LOC: HO.HMGCLDS 11:11
PROVIDERS: PCP Internal Medicine; Visit Provider Internal Medicine
DX: E11.65 Type 2 diabetes mellitus with hyperglycemia (principal); E83.52 Hypercalcemia; K75.81 Nonalcoholic steatohepatitis (NASH); E03.9 Hypothyroidism, unspecified
CPT/HCPCS: 36415; 80053; 80061; 82330; 83036; 83970; 84439; 84443; 86376

== ENCOUNTER 2023-01-13 13:54 | Outpatient (AMB) | payer OTHER, SELFPAY ==
--- NOTE | 2023-01-13 14:03 | MHC.PC.OV ---
Vital Signs 01/13/23 14:35 Height 5 ft 2 in Weight 158 lb 2 oz BMI 28.9 BP 130/86 Blood Pressure Location Lt brachial Position Sitting Pulse 88 Pulse Source Pulse Oximeter Pulse Oximetry (%) 98 Oxygen Delivery Method Room Air Intake Visit Reasons: [facility] ER focal seizure Intake Note: Pt is here today to f/u [facility] ER for focal seizure, Pt states he had a spider bite tuesday and having bums on her hand. Allergies apple Allergy (Unknown, Verified 01/14/23 00:58) swelling mouth and lips cat dander [CATS] Allergy (Unknown, Verified 01/14/23 00:58) ITCHING dog dander [DOG] Allergy (Unknown, Verified 01/14/23 00:58) ITCHING HAYFEVER Allergy (Unknown, Uncoded 01/14/23 00:58) ITCHY EYES plastic utensils and chap stic Allergy (Unknown, Uncoded 01/14/23 00:58) swell lips Medication List - Last Reconciled 01/14/23 by Ioana Chung MD cephalexin 500 mg PO Q12H 7 days flash glucose sensor (FreeStyle Edin 2 Sensor kit) As directed levothyroxine 50 mcg PO DAILY lisinopril-hydrochlorothiazide 10-12.5 mg 1 tab PO DAILY metformin 500 mg PO BID tirzepatide (Mounjaro) 2.5 mg (0.5 mL) subcut QWEEK 4 weeks Tobacco use date assessed: 01/13/23 Dental Screening Dental Screen Date: 01/13/23 Did you have a dental visit in the last 12 months?: Yes Did you have a dental problem in the last 6 months where you did not have access to dental care?: No Was dental information given to patient?: No HPI [facility] ER focal seizure HPI Details 52-year-old lady here today for follow-up after recent ER visit at [facility] where she presented with acute onset of shaking which woke her up that night, patient reported that it it initially started in her right hand which lasted for about 10 minute which bread her right arm and then down right leg. These episodes lasted for approximately an hour and a half. The ER, she has not had any further episodes of shaking, she denies any fever, no chills, no chest pain, no shortness of breath, no headache, no vision changes, weakness, numbness or tingling.. She has diabetes mellitus currently on Mounjaro, tolerating medication well, and takes it in addition to metformin 500 mg twice a day. EKG done at the ER showed normal sinus rhythm with no acute ST-T changes her QT prolongation. Her labs did not show any presence of infection or anemia , random blood sugar was 1 50 mg/dL, electrolytes, BUN creatinine,, but serum calcium was elevated at 10.6 within normal at magnesium.. Elevated albumin and elevated liver enzymes, as well as TSH. Patient states that she has not been taking her levothyroxine regular basis over the last several weeks. Concern was that she might have a possible focal seizure of new onset, and CT angio of head and neck showed no proximal occlusion or high-grade stenosis in the major arteries of the head and neck, and a CT of the head did not show any acute intracranial pathology. She was evaluated by Neurology during her stay at the ER and recommended a CT angio of head and neck as well as a CT of the head without contrast to rule out any mass lesion, which came back both unremarkable. Day already booked her at the ER to get an EEG on 03/04/2023 and an MRI of the head 02/04/2023, and follow-up with [facility] neurology. She has not had any further episodes of shaking since her discharge. Has been feeling well with no complaints at present time. She also complains of an insect bite on the tip of her index finger, which has now spread to the other fingers causing pain and stiffness. Has been applying ice, to affected area and now has started applying ER cortisone cream to affected area for the itching. [facility] Medical History (Updated 01/14/23 @ 01:16 by Ioana Chung MD) Acquired hypothyroidism COVID-19 vaccine dose declined Diabetes mellitus with hyperglycemia, without long-term current use of insulin Elevated LFTs Elevated TSH Focal seizure Glaucoma HTN (hypertension) IBS (irritable bowel syndrome) Nonscarring hair loss Obesity Pain in left forearm Refused influenza vaccine Refused pneumococcal vaccination Right upper quadrant abdominal pain Serum calcium elevated Tendinopathy of left elbow Vitamin D deficiency Surgical History History of section History of esophagogastroduodenoscopy (EGD) History of rotator cuff surgery Hx of colonoscopy Ocular rosacea Family History Father Diabetes mellitus Alcohol use Substance use disorder Mother Diabetes mellitus Brother Eosinophilic esophagitis Maternal Grandmother Alzheimer's dementia Maternal Grandfather Lung cancer Bone cancer Paternal Grandmother Alzheimer's dementia Paternal Grandfather CVD (cardiovascular disease) Brother No problems noted. Sister No problems noted. Son No problems noted. Daughter No problems noted. Social History Household Members: Significant Other and Children Housing: House Alcohol intake: current Alcohol intake frequency: holidays/special occasions only Patient Tobacco Use Status: Never used Tobacco e-Cigarette/Vaping Use: Never Used Current occupational status: employed Current occupation: [employer] Cognitive needs: No Hearing needs: No Vision needs: No Questionnaire Thrive Questionnaire Date Thrive assessed: 09/29/22 AUDIT C Alcohol Use Questionnaire (AUDIT-C) 1. How often do you have a drink containing alcohol?: Monthly or less 2. How many drinks containing alcohol do you have on a typical day when you are drinking?: 1 or 2 3. How often do you have six or more drinks on one occasion?: Never Total Score: 1 Score Reviewed/Action Taken: Yes MYRON-7 AMB Questionnaire MYRON-7 Date MYRON - 7 assessed: 09/29/22 Source: Developed by Drs. Vladislav Solorio, Toña Edmonds, Jonathan Mccauley and colleagues, with an educational marleen from [employer]. Review of Systems Const Denies fever(s), Denies headache(s) and Denies weakness Eyes Reports blurry vision ENT Reports dry mouth, Denies headache(s), Denies nasal congestion, Denies nasal discharge and Denies sore throat Card Denies chest pain, Denies lightheadedness and Denies dyspnea Resp Denies chest congestion, Denies cough, Denies dyspnea and Denies wheezing GI Denies abdominal pain and Denies change in bowel habits Denies dysuria and Reports urinary urgency Musc Reports no additional complaints Skin/Breast Reports as per HPI and Denies lesions Neuro Denies behavioral changes, Denies headache(s) and Denies weakness Psych Denies behavioral changes, Denies change in appetite, Denies depression and Denies difficulty concentrating Endo Reports polydipsia and Reports polyuria Demond/Lymph Denies easy bruising Aller/Immun Denies wheezing Physical exam (Primary Care) Vital Signs: Last Vital Signs Pulse 88 01/13/23 14:35 BP 130/86 01/13/23 14:35 Pulse Ox 98 01/13/23 14:35 Oxygen Delivery Method Room Air 01/13/23 14:35 BMI result Body Mass Index 28.9 Tobacco/Smoking Status: Tobacco use Status Tobacco use date assessed 01/13/23 01/13/23 14:06 Patient Tobacco Use Status Never used Tobacco 01/13/23 14:06 e-Cigarette/Vaping Use Never Used 01/13/23 14:06 Thrive Assessment: Date of Thrive Assessment Date Thrive assessed 09/29/22 01/13/23 14:06 Const General: cooperative, comfortable and no acute distress Orientation/consciousness: patient oriented x3 HENMT Ears: hearing grossly normal bilaterally and external ears normal General nose exam: Normal external nose present Face and sinus: Yes sinuses nontender and Yes face symmetric Mouth: Normal oral and palatal mucosa present and moist mucous membranes Neck Neck: Yes full ROM, Yes no lymphadenopathy and Yes supple Resp Effort & Inspection: normal respiratory effort and able to speak in complete sentences Auscultation: clear to auscultation bilaterally Cardio Rate: regular rate Rhythm: regular rhythm Heart sounds: S1 normal heart sound present and S2 normal heart sound present GI Palpation (GI): Soft to palpation and nontender Auscultation: normal bowel sounds Back/Spine/Pelvis Back: No back tenderness Skin Other: Slight periungual swelling and erythema noted to the fingers of both hands mainly on the index fingers. Neuro General: patient oriented x3, gait normal, moves all extremities, Normal light touch and pain sensation, no focal motor deficits and CN's II-XI intact bilaterally Extrem General: Yes normal to inspection, Yes full ROM, Yes no joint enlargement, Yes no clubbing, cyanosis or edema and Yes normal gait Psych Appearance: grossly normal Mental Status: mental status grossly normal Speech and movement: Normal speech and movement present Affect: normal affect Assessment and Plan Assessment & Plan (1) Focal seizure: Code(s): R56.9 - Unspecified convulsions Plan: . Patient was is prescribed Keppra 1000 mg twice a day afterwards discharge from the ER, but has not yet filled it, advised to fill it right away, she has an appointment for an EGD 03/04/2023 and an MRI of the head 02/04/2023 to be done at [facility], she was also advised to schedule a follow-up with her neurologist at [facility] (2) HTN (hypertension): Code(s): I10 - Essential (primary) hypertension Plan: Blood pressure at goal of less than 130/80. Continue with current medication. Reinforced importance of following a low sodium diet, getting regular exercise, and lowering stress levels. (3) Acquired hypothyroidism: Code(s): E03.9 - Hypothyroidism, unspecified Plan: Continue with current dose of levothyroxine 50 mcg daily, TSH and free T4 ordered (4) Obesity: Code(s): E66.9 - Obesity, unspecified Plan: Discussed need to increase activity and wt reduction. Recommended focusing on improving your health instead of dieting. : Eat Mediterranean diet, limit foods high in fat, sugar, and calories, eat slowly, pay attention to portion sizes, plan your meals ahead of time, start regular physical activity 150 minutes of moderate intensity exercise or 90 minutes/week of vigorous exercise and increase water intake. (5) Diabetes mellitus with hyperglycemia, without long-term current use of insulin: Code(s): E11.65 - Type 2 diabetes mellitus with hyperglycemia Qualifiers: Diabetes mellitus type: type 2 Qualified Code(s): E11.65 - Type 2 diabetes mellitus with hyperglycemia Plan: Continue taking metformin 500 mg 1 tablet twice a day, and continue Mounjaro 0.5 mg injected subcutaneously once a week, continue to check fasting blood sugar at home, maintain log and bring to next appointment for review. Reinforced diabetic diet and regular exercise with patient. Counseled regarding importance of yearly diabetes retinopathy screening. Patient advised to inspect feet daily, for any signs of injury, callus or infection. Compliance with diet and regular exercise again stressed. Blood pressure goal is less than 130/80, goal LDL is less than 100 and goal hemoglobin A1c is less than 7% \ (6) ROTHMAN (nonalcoholic steatohepatitis): Code(s): K75.81 - Nonalcoholic steatohepatitis (ROTHMAN) Plan: Recommend weight loss with diet and exercise (7) Serum calcium elevated: Code(s): E83.52 - Hypercalcemia Plan: Ordered ionized serum calcium and intact PTH (8) Swelling of digit of hand: Code(s): M79.89 - Other specified soft tissue disorders Plan: Prescription sent for cephalexin 500 mg to take 1 every 12 hours for 7 days. Orders: Orders Calcium, Ionized 01/13/23 E03.9 - Hypothyroidism, unspecified, E11.65 - Type 2 diabetes mellitus with hyperglycemia, E66.9 - Obesity, unspecified, E83.52 - Hypercalcemia, I10 - Essential (primary) hypertension, K75.81 - Nonalcoholic steatohepatitis (ROTHMAN) Hemoglobin A1c 01/13/23 E03.9 - Hypothyroidism, unspecified, E11.65 - Type 2 diabetes mellitus with hyperglycemia, E66.9 - Obesity, unspecified, E83.52 - Hypercalcemia, I10 - Essential (primary) hypertension, K75.81 - Nonalcoholic steatohepatitis (ROTHMAN) Parathyroid Hormone Related Pr 01/13/23 E03.9 - Hypothyroidism, unspecified, E11.65 - Type 2 diabetes mellitus with hyperglycemia, E66.9 - Obesity, unspecified, E83.52 - Hypercalcemia, I10 - Essential (primary) hypertension, K75.81 - Nonalcoholic steatohepatitis (ROTHMAN) Basic Metabolic Panel Fasting 01/13/23 E03.9 - Hypothyroidism, unspecified, E11.65 - Type 2 diabetes mellitus with hyperglycemia, E66.9 - Obesity, unspecified, E83.52 - Hypercalcemia, I10 - Essential (primary) hypertension, K75.81 - Nonalcoholic steatohepatitis (ROTHMAN) Lipid Panel 01/13/23 E03.9 - Hypothyroidism, unspecified, E11.65 - Type 2 diabetes mellitus with hyperglycemia, E66.9 - Obesity, unspecified, E83.52 - Hypercalcemia, I10 - Essential (primary) hypertension, K75.81 - Nonalcoholic steatohepatitis (ROTHMAN) Liver Panel 01/13/23 E03.9 - Hypothyroidism, unspecified, E11.65 - Type 2 diabetes mellitus with hyperglycemia, E66.9 - Obesity, unspecified, E83.52 - Hypercalcemia, I10 - Essential (primary) hypertension, K75.81 - Nonalcoholic steatohepatitis (ROTHMAN) Microalbumin, Random (w Creat) 01/13/23 E03.9 - Hypothyroidism, unspecified, E11.65 - Type 2 diabetes mellitus with hyperglycemia, E66.9 - Obesity, unspecified, E83.52 - Hypercalcemia, I10 - Essential (primary) hypertension, K75.81 - Nonalcoholic steatohepatitis (ROTHMAN) Free T4 (Free Thyroxine) 01/13/23 E03.9 - Hypothyroidism, unspecified Thyroid Stimulating Hormone 01/13/23 E03.9 - Hypothyroidism, unspecified Medications: New cephalexin 500 mg PO Q12H 7 days 14 caps 0RF Coding Level of Care Code Est Pt Level 4 (65261) Diagnoses Focal seizure R56.9 HTN (hypertension) I10 Acquired hypothyroidism E03.9 Obesity E66.9 Diabetes mellitus with hyperglycemia, without long-term current use of insulin E11.65 Diabetes mellitus type: type 2 ROTHMAN (nonalcoholic steatohepatitis) K75.81 Serum calcium elevated E83.52 Swelling of digit of hand M79.89
[2023-01-13 14:35] VITALS: BP 130/86; PULSE 88; O2SAT 98; BMI 28.9
== END 2023-01-13 15:07 | disposition home or self-care (01) ==
PROVIDERS: PCP Internal Medicine; Visit Provider Internal Medicine
DX: R56.9 Unspecified convulsions (principal); I10 Essential (primary) hypertension; E03.9 Hypothyroidism, unspecified; E66.9 Obesity, unspecified; E11.65 Type 2 diabetes mellitus with hyperglycemia; K75.81 Nonalcoholic steatohepatitis (NASH); E83.52 Hypercalcemia; M79.89 Other specified soft tissue disorders; Z68.28 Body mass index [BMI] 28.0-28.9, adult
CPT/HCPCS: 99214

== ENCOUNTER 2023-02-09 16:01 | Outpatient (AMB) | payer OTHER, SELFPAY ==
[2023-02-09 16:36] VITALS: BP 132/78; PULSE 82; TEMP 36.6; O2SAT 98; BMI 28.9
--- NOTE | 2023-02-09 16:36 | AM.OFFWIN_ITS ---
Intake Vital Signs 02/09/23 16:36 Height 5 ft 2 in Weight 158 lb BMI 28.9 BP 132/78 Blood Pressure Location Rt brachial Position Sitting Pulse 82 Pulse Source Pulse Oximeter Temp 97.8 F Temp Source Temporal Artery Scan Pulse Oximetry (%) 98 Oxygen Delivery Method Room Air Intake Visit Reasons: EP, Yeast infection?([phone]) Intake Note: pt is here for c/o cut on inner thigh Patient Tobacco Use Status: Never used Tobacco Allergies apple Allergy (Unknown, Verified 02/09/23 16:37) swelling mouth and lips cat dander [CATS] Allergy (Unknown, Verified 02/09/23 16:37) ITCHING dog dander [DOG] Allergy (Unknown, Verified 02/09/23 16:37) ITCHING Cephalexin Allergy (Intermediate, Uncoded 01/19/23 14:23) Rash HAYFEVER Allergy (Unknown, Uncoded 01/19/23 14:23) ITCHY EYES plastic utensils and chap stic Allergy (Unknown, Uncoded 01/19/23 14:23) swell lips HPI EP, Yeast infection?([phone]) HPI Details 52-year-old female presents to the office for a sick visit. Patient is having a lot of irritation in the left groin area. She feels very uncomfortable. [facility] Medical History (Updated 02/10/23 @ 06:55 by Chad Clayton MD) Acquired hypothyroidism COVID-19 vaccine dose declined Diabetes mellitus with hyperglycemia, without long-term current use of insulin Elevated LFTs Elevated TSH Focal seizure Glaucoma HTN (hypertension) IBS (irritable bowel syndrome) Nonscarring hair loss Obesity Pain in left forearm Refused influenza vaccine Refused pneumococcal vaccination Right upper quadrant abdominal pain Serum calcium elevated Tendinopathy of left elbow Vitamin D deficiency Surgical History History of section History of esophagogastroduodenoscopy (EGD) History of rotator cuff surgery Hx of colonoscopy Ocular rosacea Family History Father Diabetes mellitus Alcohol use Substance use disorder Mother Diabetes mellitus Brother Eosinophilic esophagitis Maternal Grandmother Alzheimer's dementia Maternal Grandfather Lung cancer Bone cancer Paternal Grandmother Alzheimer's dementia Paternal Grandfather CVD (cardiovascular disease) Brother No problems noted. Sister No problems noted. Son No problems noted. Daughter No problems noted. 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 Left groin: Inguinal fold: Superficial tear of skin. Area is very moist. No erythema. Assessment & Plan Assessment & Plan (1) Rash: Code(s): R21 - Rash and other nonspecific skin eruption Plan: Irritant area has macerated skin causing the discomfort. Hydrocortisone cream has been prescribed. Patient was advised to use boxer shorts for underwear. If symptoms not better to follow-up here. Medications: New hydrocortisone 2.5% 1 appl topical BID PRN 20 grams 0RF skin irritation Coding Level of Care Code Est Pt Level 3 (77519) Diagnoses Rash R21
== END 2023-02-09 17:01 | disposition home or self-care (01) ==
PROVIDERS: PCP Internal Medicine; Visit Provider Internal Medicine
DX: R21 Rash and other nonspecific skin eruption (principal)
CPT/HCPCS: 99213

== ENCOUNTER 2023-04-09 09:00 | Outpatient (REF) | payer OTHER, SELFPAY ==
[2023-04-09 11:41] LABS: Alanine Aminotransferase 60 U/L (0-31); Albumin Level 4.3 g/dL (3.5-5.0); Alkaline Phosphatase 85 U/L (39-117); Anion Gap 13 (12-20); Aspartate Amino Transferase 45 U/L (5-31); Bilirubin Direct 0.1 mg/dL (0.0-0.5); Bilirubin Total 0.3 mg/dL (0.0-1.0); Blood Urea Nitrogen 9 mg/dL (9-16); Calcium 10.2 mg/dL (8.4-10.2); Carbon Dioxide 27 mmol/L (22-29); Chloride 107 mmol/L (96-108); Cholesterol 127 mg/dL (<200); Estimated Average Glucose 151 mg/dL; Estimated Glomerular Filt Rate > 60; Glucose Fasting 186 mg/dL (60-99); HDL Cholesterol 34 mg/dL (>40); Hemoglobin A1c % 6.9 % (<6.0); LDL Cholesterol Calculated 57 mg/dL (<100); Potassium 4.3 mmol/L (3.3-5.1); Sodium 143 mmol/L (135-145); Total Protein 7.1 g/dL (6.5-8.0); Triglycerides 181 mg/dL (<150)
[2023-04-09 11:47] LABS: Creatinine Urine 273.62 mg/dL; Microalbum/Creatinine Ratio Ur 4.3 ug/mg cr (<30)
[2023-04-09 12:01] LABS: Thyroid Stimulating Hormone 2.83 uIU/mL (0.32-4.0)
[2023-04-13 01:59] LABS: Calcium, Ionized 5.1 mg/dL (4.7-5.5)
== END 2023-04-09 09:01 | disposition home or self-care (01) ==
LOC: HO.HMGCLDS 09:00
PROVIDERS: PCP Internal Medicine; Visit Provider Internal Medicine
DX: E03.9 Hypothyroidism, unspecified (principal); E66.9 Obesity, unspecified; E11.65 Type 2 diabetes mellitus with hyperglycemia; K75.81 Nonalcoholic steatohepatitis (NASH); E83.52 Hypercalcemia; I10 Essential (primary) hypertension
CPT/HCPCS: 36415; 80048; 80061; 80076; 82043; 82330; 82570; 83036; 84439; 84443

== ENCOUNTER 2023-06-23 08:13 | Outpatient (REF) | payer OTHER, SELFPAY ==
[2023-06-23 12:03] LABS: Estimated Average Glucose 154 mg/dL
[2023-06-23 12:31] LABS: Alanine Aminotransferase 51 U/L (0-31); Albumin Level 4.3 g/dL (3.5-5.0); Alkaline Phosphatase 60 U/L (39-117); Anion Gap 12 (12-20); Aspartate Amino Transferase 43 U/L (5-31); Bilirubin Total 0.5 mg/dL (0.0-1.0); Blood Urea Nitrogen 10 mg/dL (9-16); Calcium 9.8 mg/dL (8.4-10.2); Carbon Dioxide 30 mmol/L (22-29); Chloride 104 mmol/L (96-108); Cholesterol 153 mg/dL (<200); Estimated Glomerular Filt Rate > 60; Glucose Fasting 162 mg/dL (60-99); HDL Cholesterol 42 mg/dL (>40); LDL Cholesterol Calculated 83 mg/dL (<100); Potassium 3.7 mmol/L (3.3-5.1); Sodium 142 mmol/L (135-145); Total Protein 7.2 g/dL (6.5-8.0); Triglycerides 142 mg/dL (<150)
[2023-06-23 12:35] LABS: Free T4 (Free Thyroxine) 0.85 ng/dL (0.71-1.85); Thyroid Stimulating Hormone 3.94 uIU/mL (0.32-4.0); Vitamin D 25-OH Total 22.7 ng/mL (>30)
[2023-06-23 12:51] LABS: Creatinine Urine 138.05 mg/dL; Microalbum/Creatinine Ratio Ur 4.3 ug/mg cr (<30)
== END 2023-06-23 08:14 | disposition home or self-care (01) ==
LOC: HO.HMGCLDS 08:13
PROVIDERS: PCP Internal Medicine; Visit Provider Internal Medicine
DX: I10 Essential (primary) hypertension (principal); E66.9 Obesity, unspecified; E11.65 Type 2 diabetes mellitus with hyperglycemia; K75.81 Nonalcoholic steatohepatitis (NASH); E55.9 Vitamin D deficiency, unspecified; E03.9 Hypothyroidism, unspecified
CPT/HCPCS: 36415; 80053; 80061; 82043; 82306; 82570; 83036; 84439; 84443

== ENCOUNTER 2023-06-24 12:44 | Outpatient (AMB) | payer OTHER, SELFPAY ==
--- NOTE | 2023-06-24 13:09 | A.OFFPC_ITS ---
Vital Signs 06/24/23 13:10 Height 5 ft 2 in Weight 155 lb 8 oz BMI 28.4 BP 120/86 Blood Pressure Location Rt brachial Position Sitting Pulse 69 Pulse Source Pulse Oximeter Pulse Oximetry (%) 99 Oxygen Delivery Method Room Air Intake Visit Reasons: Diabetes followup Intake Note: Pt is here to follow up for her lab results Allergies apple Allergy (Unknown, Verified 06/24/23 13:50) swelling mouth and lips cat dander [CATS] Allergy (Unknown, Verified 06/24/23 13:50) ITCHING dog dander [DOG] Allergy (Unknown, Verified 06/24/23 13:50) ITCHING Cephalexin Allergy (Intermediate, Uncoded 06/24/23 13:50) Rash HAYFEVER Allergy (Unknown, Uncoded 06/24/23 13:50) ITCHY EYES Medication List - Last Reconciled 06/24/23 by Ioana Chung MD flash glucose sensor (FreeStyle Edin 2 Sensor kit) As directed hydrocortisone 2.5% 1 appl topical BID PRN levothyroxine 50 mcg PO DAILY lisinopril-hydrochlorothiazide 10-12.5 mg 1 tab PO DAILY metformin 500 mg PO BID Ozempic (semaglutide) 0.25 mg (0.368 mL) subcut QWEEK 1 month NS Tobacco use date assessed: 06/24/23 Dental Screening Dental Screen Date: 06/24/23 Did you have a dental visit in the last 12 months?: No Did you have a dental problem in the last 6 months where you did not have access to dental care?: No Was dental information given to patient?: Patient has dentist HPI Diabetes followup HPI Details 52-year-old lady with hypertension, hypo thyroidism, and diabetes mellitus, previously on metformin but unable to tolerate it due to gi upset , and was on Mounjaro but states that her insurance has stopped covering the latter medication and has been having diarrhea from it . Her latest hemoglobin A1c is at 7% and fasting lipids are within normal limits except for low HDL cholesterol normal thyroid levels, but has vitamin-D deficiency as seen on recent labs done. Urine microalbumin showed normal results. She is overdue for her diabetes retinopathy screening. [facility] Medical History (Updated 06/28/23 @ 15:14 by Ioana Chung MD) Elevated LFTs Focal seizure Tendinopathy of left elbow Refused pneumococcal vaccination Refused influenza vaccine COVID-19 vaccine dose declined IBS (irritable bowel syndrome) Vitamin D deficiency Nonscarring hair loss Acquired hypothyroidism Obesity Diabetes mellitus with hyperglycemia, without long-term current use of insulin Glaucoma HTN (hypertension) Surgical History History of esophagogastroduodenoscopy (EGD) Hx of colonoscopy Ocular rosacea History of section History of rotator cuff surgery Family History Father Diabetes mellitus Alcohol use Substance use disorder Mother Diabetes mellitus Brother Eosinophilic esophagitis Maternal Grandmother Alzheimer's dementia Maternal Grandfather Lung cancer Bone cancer Paternal Grandmother Alzheimer's dementia Paternal Grandfather CVD (cardiovascular disease) Brother No problems noted. Sister No problems noted. Son No problems noted. Daughter No problems noted. 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 1. Little interest or pleasure in doing things: not at all 2. Feeling down, depressed, or hopeless: not at all 3. Trouble falling or staying asleep, or sleeping too much: more than half the days 4. Feeling tired or having little energy: more than half the days 5. Poor appetite or overeating: not at all 6. Feeling bad about yourself - or that you are a failure or have let yourself or your family down: not at all 7. Trouble concentrating on things, such as reading the newspaper or watching television: not at all 8. Moving or speaking so slowly that other people could have noticed. Or the opposite - being so fidgety or restless that you have been moving around a lot more than usual: not at all 9. Thoughts that you would be better off or of hurting yourself in some way: not at all Total score: 4 Depression Screening Interpretation: Negative Depression Screening Done: Yes 52239 - PHQ-9 Billing: Yes Source: Developed by Drs. Vladislav Solorio, Toña Edmonds, Jonathan Mccauley and colleagues, with an educational marleen from [employer]. Thrive Questionnaire Date Thrive assessed: 06/24/23 I am a: Patient What is your living situation today?: I have a steady place to live Within the past 12 months, did the food you bought not last and you didn't have the money to get more?: Never true Within the past 12 months, did you worry whether your food would run out before you got money to buy more?: Never true Do you have trouble paying for medicines?: Yes Do you have trouble getting transportation to medical appointments?: No Do you have trouble paying your heating and electricity bill?: No Do you have trouble taking care of your child, family member or friend?: No Do you have trouble with day-to-day activities such as bathing, preparing meals, shopping, managing finances, etc.?: No Are you currently unemployed and looking for a job?: No Are you interested in more education?: No AUDIT C Alcohol Use Questionnaire (AUDIT-C) 1. How often do you have a drink containing alcohol?: 2-4 times a month 2. How many drinks containing alcohol do you have on a typical day when you are drinking?: 3 or 4 3. How often do you have six or more drinks on one occasion?: Never Total Score: 3 MYRON-7 AMB Questionnaire MYRON-7 Date MYRON - 7 assessed: 10/13/22 Feeling nervous, anxious, or on edge: 0 = Not at all Not being able to stop or control worryin = Not at all Worrying too much about different things: 0 = Not at all Trouble relaxin = Not at all Being so restless that it is hard to sit still: 0 = Not at all Becoming easily annoyed or irritable: 0 = Not at all Feeling afraid as if something awful might happen: 0 = Not at all Total MYRON-7 score (0-4 normal; 5-9 mild; 10-14 moderate; 15-21 severe): 0 Source: Developed by Toña Carranza Grey, Jonathan Mccauley and colleagues, with an educational marleen from [employer]. MYRON-7 Assessment Billing MYRON-7 Assessment Tool: MYRON-7 Assessment 56132 Review of Systems Const Denies fever(s), Denies headache(s) and Denies weakness Eyes Reports blurry vision ENT Denies headache(s), Denies nasal congestion, Denies nasal discharge and Denies sore throat Card Denies chest pain, Denies lightheadedness and Denies dyspnea Resp Denies chest congestion, Denies cough, Denies dyspnea and Denies wheezing GI Denies abdominal pain and Denies change in bowel habits Denies dysuria and Reports urinary urgency Musc Reports no additional complaints Neuro Denies headache(s) and Denies weakness Psych Reports no additional complaints Endo Reports no additional complaints Demond/Lymph Denies easy bruising Aller/Immun Denies wheezing Physical exam (Primary Care) Vital Signs: Last Vital Signs Pulse 69 06/24/23 13:10 BP 120/86 06/24/23 13:10 Pulse Ox 99 06/24/23 13:10 Oxygen Delivery Method Room Air 06/24/23 13:10 BMI result Body Mass Index 28.4 BMI Assessment/Plan discussion: High BMI High, discussed plan: lifestyle, weight reduction, dietary, physical activity and other (Will start MOunjaro , switching from Ozempic) Tobacco/Smoking Status: Tobacco use Status Tobacco use date assessed 06/24/23 06/24/23 13:15 Patient Tobacco Use Status Never used Tobacco 06/24/23 13:15 e-Cigarette/Vaping Use Never Used 06/24/23 13:15 PHQ-9: PHQ-9 Score PHQ-9: Total score 4 06/28/23 14:40 Depression Screening Interpretation: Negative Thrive Assessment: Date of Thrive Assessment Date Thrive assessed 06/24/23 06/24/23 13:37 Const General: comfortable, no acute distress and alert Nutritional Appearance: overweight Orientation/consciousness: patient oriented x3 HENMT Ears: hearing grossly normal bilaterally and external ears normal General nose exam: Normal external nose present Face and sinus: Yes sinuses nontender and Yes face symmetric Mouth: Normal oral and palatal mucosa present and moist mucous membranes Neck Neck: Yes full ROM, Yes no lymphadenopathy and Yes supple Resp Effort & Inspection: normal respiratory effort and able to speak in complete sentences Auscultation: clear to auscultation bilaterally Cardio Rate: regular rate Rhythm: regular rhythm Heart sounds: S1 normal heart sound present and S2 normal heart sound present GI Palpation (GI): Soft to palpation and nontender Auscultation: normal bowel sounds Back/Spine/Pelvis Back: No back tenderness Neuro General: patient oriented x3, gait normal, moves all extremities, Normal light touch and pain sensation, no focal motor deficits and CN's II-XI intact bilaterally Extrem General: Yes normal to inspection, Yes full ROM, Yes no joint enlargement, Yes no clubbing, cyanosis or edema and Yes normal gait Psych Appearance: grossly normal Mental Status: mental status grossly normal Speech and movement: Normal speech and movement present Affect: normal affect Results Reviewed Results Reviewed: Laboratory Tests 06/23/23 08:22 Estimat Average Glucose 154 Hemoglobin A1c % 7.0 H Urine Creatinine 138.05 Urine Microalbumin 6.0 Microalb/Creat Ratio 4.3 ENTERED: 06/23/23 NIKKI ARAUZ: ORDERED: CMP Fast, Lipid Panel, Vitamin D 25-OH, Free T4, TSH Test Result Flag Reference Sodium 142 135-145 mmol/L Potassium 3.7 3.3-5.1 mmol/L CL 104 96-108 mmol/L CO2 30 H 22-29 mmol/L Gap 12 12-20 BUN 10 9-16 mg/dL Creat 0.78 0.5-1.4 mg/dL EGFR > 60 NOTE: For -Palest[place] individuals, multiply the result by 1.210. Chronic Kidney Disease: Estimated GFR < 60 mL/min/1.73m2 Severe Kidney Disease: Estimated GFR < 15 mL/min/1.73m2 FBS 162 H 60-99 mg/dL A fasting glucose of 126 mg/dl or greater on more than one occasion is considered diagnostic of diabetes. CA 9.8 8.4-10.2 mg/dL Total Bili 0.5 0.0-1.0 mg/dL AST (GOT) 43 H 5-31 U/L ALT (GPT) 51 H 0-31 U/L Protein, Total 7.2 6.5-8.0 g/dL Alb 4.3 3.5-5.0 g/dL Triglyceride 142 <150 mg/dL Desirable Triglyceride: less than 150 mg/dL Borderline High Triglyceride 150-199 mg/dL High Triglyceride: 200-499 mg/dL Very High Triglyceride: greater than or equal to 5OO mg/dL Cholesterol 153 <200 mg/dL Desirable Cholesterol: less than 200 mg/dL Borderline High Cholesterol: 200-239 mg/dL High Cholesterol: greater than 239 mg/dL LDL Calculated 83 <100 mg/dL Desirable LDL: less than 100 mg/dL Near Optimal/Above Optimal LDL: 110-129 mg/dL Borderline High LDL: 130-159 mg/dL High LDL: 160-189 mg/dL Very High LDL: greater than or equal to 190 mg/dL HDL 42 >40 mg/dL Desirable HDL: greater than 40 mg/dL Note: This HDL assay may give artificially low results in patients with liver disease. Alk Phos 60 39-117 U/L Vit D 25-OH Tot 22.7 L >30 ng/mL Health Based Reference Values* < 20 ng/mL Deficient 20-30 ng/mL Insufficient > 30 ng/mL Sufficient *Viviana SEGUNDO. N Engl J Med. 2007;[id number] Care must be taken in interpreting Vitamin D results from different laboratories and methodologies. Published data demonstrated that results from patients undergoing hemodialysis may show a negative bias when tested with various automated 25-OH vitamin D assays when compared to LC-MS/MS. When testing samples from patients whose predominant form of Vitamin D is Vitamin D2, such as patients receiving Vitamin D2 supplementation, results that are subtherapeutic should be confirmed with another method such as LC-MS/MS. Free T4 0.85 0.71-1.85 ng/dL TSH 3rd Gen. 3.94 0.32-4.0 uIU/mL Note: A sustained TSH level above 2.5 uIU/mL may warrant further investigation. TSH 3rd Generation ([facility]) Assessment and Plan Assessment & Plan (1) Diabetes mellitus with hyperglycemia, without long-term current use of insulin: Code(s): E11.65 - Type 2 diabetes mellitus with hyperglycemia Qualifiers: Diabetes mellitus type: type 2 Qualified Code(s): E11.65 - Type 2 diabetes mellitus with hyperglycemia Plan: Recent lab results reviewed with patient, with sugar and hemoglobin A1c stable but higher than last check. Will try again on metformin 500 mg 1 tablet twice a day,rx sent for ozempic continue to check fasting blood sugar at home, maintain log and bring to next appointment for review. Reinforced diabetic diet and regular exercise with patient. Counseled regarding importance of yearly diabetes retinopathy screening. Patient advised to inspect feet daily, for any signs of injury, callus or infection. Compliance with diet and regular exercise again stressed. Blood pressure goal is less than 130/80, goal LDL is less than 100 and goal hemoglobin A1c is less than 7% follow-up appointment made in-3--months, after fasting labs done. (2) HTN (hypertension): Code(s): I10 - Essential (primary) hypertension Qualifiers: Hypertension type: primary hypertension Qualified Code(s): I10 - Essential (primary) hypertension Plan: Blood pressure at goal of less than 130/80. Continue with current medication. Reinforced importance of following a low sodium diet, getting regular exercise, and lowering stress levels. (3) Acquired hypothyroidism: Code(s): E03.9 - Hypothyroidism, unspecified Plan: Continue with current dose of levothyroxine (4) Vitamin D deficiency: Code(s): E55.9 - Vitamin D deficiency, unspecified Plan: [place] 3 [place] [address] units per capsule to take once a week for the next 3 months (5) Elevated LFTs: Code(s): R79.89 - Other specified abnormal findings of blood chemistry Plan: Improving as compared to last check, advised to avoid any alcohol intake (6) Refused pneumococcal vaccination: Code(s): Z28.21 - Immunization not carried out because of patient refusal (7) Refused influenza vaccine: Code(s): Z28.21 - Immunization not carried out because of patient refusal (8) COVID-19 vaccine dose declined: Code(s): Z28.21 - Immunization not carried out because of patient refusal Orders: Orders Alanine Aminotransferase 09/12/23 E03.9 - Hypothyroidism, unspecified, E11.65 - Type 2 diabetes mellitus with hyperglycemia, E55.9 - Vitamin D deficiency, unspecified, E66.9 - Obesity, unspecified, I10 - Essential (primary) hypertension, Z28.21 - Immunization not carried out because of patient refusal Hemoglobin A1c 09/12/23 E03.9 - Hypothyroidism, unspecified, E11.65 - Type 2 diabetes mellitus with hyperglycemia, E55.9 - Vitamin D deficiency, unspecified, E66.9 - Obesity, unspecified, I10 - Essential (primary) hypertension, Z28.21 - Immunization not carried out because of patient refusal Basic Metabolic Panel Fasting 09/12/23 E03.9 - Hypothyroidism, unspecified, E11.65 - Type 2 diabetes mellitus with hyperglycemia, E55.9 - Vitamin D deficiency, unspecified, E66.9 - Obesity, unspecified, I10 - Essential (primary) hypertension, Z28.21 - Immunization not carried out because of patient refusal Thyroid Stimulating Hormone 09/12/23 E03.9 - Hypothyroidism, unspecified, E11.65 - Type 2 diabetes mellitus with hyperglycemia, E55.9 - Vitamin D deficiency, unspecified, E66.9 - Obesity, unspecified, I10 - Essential (primary) h ypertension, Z28.21 - Immunization not carried out because of patient refusal Free T4 (Free Thyroxine) 09/12/23 E03.9 - Hypothyroidism, unspecified, E11.65 - Type 2 diabetes mellitus with hyperglycemia, E55.9 - Vitamin D deficiency, unspecified, E66.9 - Obesity, unspecified, I10 - Essential (primary) hypertension, Z28.21 - Immunization not carried out because of patient refusal Aspartate Amino Transferase 09/12/23 E03.9 - Hypothyroidism, unspecified, E11.65 - Type 2 diabetes mellitus with hyperglycemia, E55.9 - Vitamin D deficiency, unspecified, E66.9 - Obesity, unspecified, I10 - Essential (primary) hypertension, Z28.21 - Immunization not carried out because of patient refusal Lipid Panel 09/12/23 E03.9 - Hypothyroidism, unspecified, E11.65 - Type 2 diabetes mellitus with hyperglycemia, E55.9 - Vitamin D deficiency, unspecified, E66.9 - Obesity, unspecified, I10 - Essential (primary) hypertension, Z28.21 - Immunization not carried out because of patient refusal Microalbumin, Random (w Creat) 09/12/23 E03.9 - Hypothyroidism, unspecified, E11.65 - Type 2 diabetes mellitus with hyperglycemia, E55.9 - Vitamin D deficiency, unspecified, E66.9 - Obesity, unspecified, I10 - Essential (primary) hypertension, Z28.21 - Immunization not carried out because of patient refusal Vitamin D 25-OH Total 09/12/23 E03.9 - Hypothyroidism, unspecified, E11.65 - Type 2 diabetes mellitus with hyperglycemia, E55.9 - Vitamin D deficiency, unspecified, E66.9 - Obesity, unspecified, I10 - Essential (primary) hypertension, Z28.21 - Immunization not carried out because of patient refusal Medications: New cholecalciferol (vitamin D3) 1,250 mcg PO QWEEK 3 months 13 caps 0RF Refilled levothyroxine take in am an hour before breakfast 50 mcg PO DAILY 90 tabs 2RF lisinopril-hydrochlorothiazide 10-12.5 mg 1 tab PO DAILY 90 tabs 1RF metformin 500 mg PO BID 60 tabs 6RF Coding Level of Care Code Est Pt Level 4 (55430) Diagnoses Type 2 diabetes mellitus with hyperglycemia, without long-term current use of insulin E11.65 Diabetes mellitus type: type 2 Primary hypertension I10 Hypertension type: primary hypertension Acquired hypothyroidism E03.9 Vitamin D deficiency E55.9 Elevated LFTs R79.89 Refused pneumococcal vaccination Z28.21 Refused influenza vaccine Z28.21 COVID-19 vaccine dose declined Z28.21 Additional Codes MYRON-7 Assessment Billing - MYRON-7 Assessment Tool: MYRON-7 Assessment 73090 ([id number])
[2023-06-24 13:10] VITALS: BP 120/86; PULSE 69; O2SAT 99; BMI 28.4
== END 2023-06-24 14:22 | disposition home or self-care (01) ==
PROVIDERS: PCP Internal Medicine; Visit Provider Internal Medicine
DX: E11.65 Type 2 diabetes mellitus with hyperglycemia (principal); I10 Essential (primary) hypertension; E03.9 Hypothyroidism, unspecified; E55.9 Vitamin D deficiency, unspecified; R79.89 Other specified abnormal findings of blood chemistry; Z28.21 Immunization not carried out because of patient refusal
CPT/HCPCS: 99214

== ENCOUNTER 2023-09-26 09:21 | Outpatient (REF) | payer OTHER, SELFPAY ==
[2023-09-26 10:43] LABS: Estimated Average Glucose 151 mg/dL; Hemoglobin A1c % 6.9 % (<6.0)
[2023-09-26 11:08] LABS: Alanine Aminotransferase 26 U/L (0-31); Anion Gap 13 (12-20); Aspartate Amino Transferase 23 U/L (5-31); Blood Urea Nitrogen 11 mg/dL (9-16); Calcium 9.6 mg/dL (8.4-10.2); Carbon Dioxide 27 mmol/L (22-29); Chloride 107 mmol/L (96-108); Cholesterol 128 mg/dL (<200); Estimated Glomerular Filt Rate > 60; Glucose Fasting 138 mg/dL (60-99); HDL Cholesterol 41 mg/dL (>40); LDL Cholesterol Calculated 69 mg/dL (<100); Potassium 3.6 mmol/L (3.3-5.1); Sodium 143 mmol/L (135-145); Triglycerides 92 mg/dL (<150)
[2023-09-26 11:14] LABS: Free T4 (Free Thyroxine) 0.81 ng/dL (0.71-1.85); Thyroid Stimulating Hormone 3.74 uIU/mL (0.32-4.0); Vitamin D 25-OH Total 90.5 ng/mL (>30)
[2023-09-26 14:24] LABS: Creatinine Urine 283.77 mg/dL; Microalbum/Creatinine Ratio Ur 6.3 ug/mg cr (<30)
== END 2023-09-26 09:22 | disposition home or self-care (01) ==
LOC: HO.HMGCLDS 09:21
PROVIDERS: PCP Internal Medicine; Visit Provider Internal Medicine
DX: I10 Essential (primary) hypertension (principal); E55.9 Vitamin D deficiency, unspecified; E03.9 Hypothyroidism, unspecified; E66.9 Obesity, unspecified; E11.65 Type 2 diabetes mellitus with hyperglycemia
CPT/HCPCS: 36415; 80048; 80061; 82043; 82306; 82570; 83036; 84439; 84443; 84450; 84460